=== PATIENT | male | born 1970 | race Caucasian/White ===

== ENCOUNTER 2024-06-06 11:07 | Emergency (ER) | payer OTHER, MEDICAID ==
[~2024-06-06] VITALS: Ht 175.3 cm; Wt 130.9 kg
[2024-06-06] MEDS ORDERED: ELIQUIS5 MG PO (11:53)
[2024-06-06] MEDS ORDERED: VITAMIN B150 MG PO (11:53)
[2024-06-06] MEDS ORDERED: PROTONIX40 M1 PO (11:54)
[2024-06-06] MEDS ORDERED: VITAMIN B-1100 M1 PO (11:54)
[2024-06-06] MEDS ORDERED: BUSPIRONE HCL7.5 MG PO (11:54)
[2024-06-06] MEDS ORDERED: CHLORDIAZEPOXID25 MG PO (11:55)
[2024-06-06] MEDS ORDERED: AMBIEN CR12.5 MG PO (11:55)
[2024-06-06] MEDS ORDERED: REMERON45 M1 PO (11:55)
[2024-06-06] MEDS ORDERED: FOLIC ACID1 MG PO (11:56)
[2024-06-06] MEDS ORDERED: CARAFATE1 GM/10 ML PO (11:57)
[2024-06-06 12:29] LABS: BILIRUBIN, URINE NEGATIVE (negative); BLOOD/HGB, URINE NEGATIVE (Negative); KETONE, URINE NEGATIVE (Negative); LEUK ESTERASE, URINE NEGATIVE (negative); NITRITE, URINE NEGATIVE (negative)
[2024-06-06 12:38] LABS: EOSINOPHILS 2.1 % (0-6); HEMATOCRIT 32.9 % (35.0-50.0); HEMOGLOBIN 9.6 g/dL (12.0-18.0); MCH 23.1 (27-36); MCHC 29.1 g/dl (30-36); MCV 79.1 fl (81-99); MONOCYTES 10.3 % (0-12); NEUTROPHILS 42.6 % (39-80); PLATELET COUNT 196 K/uL (140-440); RBC 4.16 M/ul (4.3-5.7); RDW 26.7 (10.5-15.0)
[2024-06-06 12:46] LABS: AMPHETAMINES, URINE NEGATIVE (NEGATIVE); BARBITURATES, URINE NEGATIVE (NEGATIVE); BENZODIAZEPINE, URINE POSITIVE (NEGATIVE); BUPRENORPHINE, URINE NEGATIVE (NEGATIVE); COCAINE, URINE NEGATIVE (NEGATIVE); ECSTASY, URINE NEGATIVE (NEGATIVE); FENTANYL, URINE NEGATIVE (NEGATIVE); METHADONE, URINE NEGATIVE (NEGATIVE); OPIATES, URINE NEGATIVE (NEGATIVE); OXYCODONE, URINE NEGATIVE (NEGATIVE); PHENCYCLIDINE, URINE NEGATIVE (NEGATIVE)
[2024-06-06 12:47] LABS: CANNABINOID, URINE NEGATIVE (NEGATIVE)
[2024-06-06 13:03] LABS: ALBUMIN 3.4 g/dL (3.4-5.0); ALBUMIN/GLOBULIN RATIO 0.87 (1.1-2.4); ANION GAP 13.7 (7-21); BILIRUBIN, TOTAL 0.4 mg/dL (0.2-1.0); BUN/CREATININE RATIO 6.66 (6.0-28.6); CALCIUM 8.6 mg/dL (8.5-10.1); CREATININE, SERUM 0.75 mg/dL (0.70-1.30); POTASSIUM 3.7 mmol/L (3.5-5.1); PROTEIN, TOTAL 7.3 g/dL (6.4-8.2); TSH, 3RD GENERATION 0.843 uIU/mL (0.358-3.740)
[2024-06-06 13:48] LABS: INR 1.03 (0.80-1.30); PROTIME 13.4 Sec (11.2-14.2)
[2024-06-06 16:11] VITALS: BP 121/77
--- NOTE | 2024-06-06 23:01 | EKG ---
[facility] [address] [facility] [address] [place] [address] Signed Normal sinus rhythm Normal ECG No previous ECGs available Confirmed by Haresh Douglas MD () on 06/06/2024 11:01:21 PM Electronically Signed By: HARESH DOUGLAS MD 06/06/242300 PATIENT NAME: QUEENIE DESHPANDE Electrocardiogram DATE OF : 66 PHYSICIAN: HARESH DOUGLAS MD REPORT #: [id number] REPORT IS CONFIDENTIAL AND NOT TO BE RELEASED WITHOUT AUTHORIZATION
== END 2024-06-06 16:11 | disposition home or self-care (01) ==
LOC: ED 11:07
PROVIDERS: Emergency Medicine
DX: F10.129 Alcohol abuse with intoxication, unspecified (principal); Z88.0 Allergy status to penicillin
CPT/HCPCS: 36415; 70450; 71045; 80053; 80307; 81003; 82140; 84443; 85025; 85060; 85610; 93005; 93010; 99285-25; G0480

== ENCOUNTER 2024-06-07 03:27 | Emergency (ER) | payer MEDICAID ==
[~2024-06-07] VITALS: Ht 175.3 cm; Wt 84.5 kg
[~2024-06-07 03:27] MED LIST: AMBIEN CR12.5 MG PO; BUSPIRONE HCL7.5 MG PO; CARAFATE1 GM/10 ML PO; CHLORDIAZEPOXID25 MG PO; ELIQUIS5 MG PO; FOLIC ACID1 MG PO; PROTONIX40 M1 PO; REMERON45 M1 PO; VITAMIN B-1100 M1 PO; VITAMIN B150 MG PO
--- OUTSIDE RECORDS SUMMARY | 2024-06-07 03:33 | XMS ---
PreManage Notification: QUEENIE DESHPANDE [employer] Events No recent Security Events currently on file CRITERIA MET - [facility] - 2 Visits in 30 Days CARE PROVIDERS There are no care providers on record at this time. Alejandrina has no Care Guidelines for this patient. [facility] NOTE: Visits indicate total known visits. ED/C VISIT TRACKING (12 MO.) 06/07/2024 03:[address] [facility] [address] [facility] [place] TYPE: Emergency COMPLAINT: - WEAKNESS 06/06/2024 11:07 [facility] [place] TYPE: Emergency COMPLAINT: - FALL INPATIENT VISIT TRACKING (12 MO.) No inpatient visits to display in this time frame [email or web address]
[2024-06-07] MEDS ORDERED: LACTATED RINGER'S 1,000 ML IV ONE (04:15)
[2024-06-07] MEDS ORDERED: FOLIC ACID 1 MG TAB PO ONE (04:30)
[2024-06-07] MEDS ORDERED: FAMOTIDINE 20 MG/ 2 ML VIAL IV ONE (04:30)
[2024-06-07] MEDS ORDERED: THIAMINE HCL 100 MG TAB PO ONE (04:30)
[2024-06-07] MEDS ORDERED: ondansetron HCL 4 MG/2 ML VIAL IV ONE (04:30)
[2024-06-07 06:45] LABS: BASOPHILS 1.8 % (0-2); EOSINOPHILS 1.4 % (0-6); HEMATOCRIT 29.5 % (35.0-50.0); HEMOGLOBIN 8.6 g/dL (12.0-18.0); LYMPHOCYTES 44.1 % (24-44); MCHC 29.3 g/dl (30-36); MCV 78.7 fl (81-99); MONOCYTES 7.9 % (0-12); NEUTROPHILS 44.8 % (39-80); PLATELET COUNT 194 K/uL (140-440); RBC 3.75 M/ul (4.3-5.7); RDW 26.5 (10.5-15.0)
[2024-06-07 06:56] LABS: INR 1.18 (0.80-1.30); PROTIME 14.9 Sec (11.2-14.2)
[2024-06-07 07:02] LABS: ALBUMIN/GLOBULIN RATIO 0.88 (1.1-2.4); ANION GAP 13.2 (7-21); BILIRUBIN, TOTAL 0.4 mg/dL (0.2-1.0); BUN/CREATININE RATIO 8.43 (6.0-28.6); CALCIUM 8.2 mg/dL (8.5-10.1); CREATININE, SERUM 0.83 mg/dL (0.70-1.30); PHOSPHORUS, INORGANIC 3.1 mg/dL (2.5-4.9); POTASSIUM 3.2 mmol/L (3.5-5.1); PROTEIN, TOTAL 6.4 g/dL (6.4-8.2)
[2024-06-07 09:02] VITALS: BP 134/80
== END 2024-06-07 09:02 | disposition home or self-care (01) ==
LOC: ED 03:27
PROVIDERS: Internal Medicine
DX: F10.129 Alcohol abuse with intoxication, unspecified (principal); K21.9 Gastro-esophageal reflux disease without esophagitis; I25.2 Old myocardial infarction; Z86.711 Personal history of pulmonary embolism; Z86.718 Personal history of other venous thrombosis and embolism; Z88.0 Allergy status to penicillin; Z79.01 Long term (current) use of anticoagulants; Z79.899 Other long term (current) drug therapy
CPT/HCPCS: 36415; 70450; 80053; 80307; 82550; 83690; 83735; 84100; 84484; 85025; 85060; 85610; 96374; 96375; 99285-25; G0480; J2405; J7121